=== PATIENT | female | born 1990 | race Native Hawaiian/Other Pacific Islander ===

== ENCOUNTER 2017-01-22 19:47 | Emergency (ER) | payer OTHER ==
[~2017-01-22] VITALS: Ht 170.2 cm; Wt 83.9 kg
[2017-01-22 21:02] LABS: PLATELET COUNT 238 K/uL (152-353)
[2017-01-22 21:22] LABS: POTASSIUM 3.7 mmol/L (3.6-5.2); SODIUM 135 mmol/L (136-145)
[2017-01-22 23:23] VITALS: BP 124/74; TEMP 99
== END 2017-01-22 23:45 | disposition home or self-care (01) ==
LOC: ED 19:47
DX: K52.9 Noninfective gastroenteritis and colitis, unspecified (principal); R19.7 Diarrhea, unspecified
CPT/HCPCS: 36415; 80053; 81000; 81025; 85027; 96374; 99284; J2405

== ENCOUNTER 2017-12-27 08:29 | Emergency (ER) | payer OTHER ==
[~2017-12-27] VITALS: Ht 167.6 cm; Wt 86.2 kg
[2017-12-27 08:34] VITALS: TEMP 97.2
[2017-12-27 09:36] LABS: PLATELET COUNT 214 K/uL (152-353)
[2017-12-27 10:04] LABS: POTASSIUM 4.3 mmol/L (3.6-5.2)
[2017-12-27 12:43] VITALS: BP 108/60
[2017-12-28] MEDS ORDERED: 904272561 PO (05:59)
[2017-12-28] MEDS ORDERED: KETO10TA34 PO (06:00)
== END 2017-12-27 12:51 | disposition home or self-care (01) ==
LOC: ED 08:29
PROVIDERS: Emergency Medicine
DX: N39.0 Urinary tract infection, site not specified (principal); K59.00 Constipation, unspecified; R10.11 Right upper quadrant pain
CPT/HCPCS: 36415; 80053; 81000; 81025; 82150; 83690; 85027; 87077; 87086; 87088; 87186; 96360; 96361; 96374; 96375; 99284; J1885; J2405

== ENCOUNTER 2017-12-28 05:36 | Outpatient (CLI) | payer OTHER ==
[2017-12-28] MEDS ORDERED: 904272561 PO (05:59)
[2017-12-28] MEDS ORDERED: KETO10TA34 PO (06:00)
== END 2017-12-28 05:44 | disposition short-term general hospital (02) ==
LOC: AMB 05:36
DX: R10.0 Acute abdomen (principal)
CPT/HCPCS: A0425; A0427

== ENCOUNTER 2017-12-28 05:47 | Inpatient (IN) | payer OTHER ==
[~2017-12-28] VITALS: Ht 167.6 cm; Wt 78.7 kg
[2017-12-28 05:47] VITALS: BP 122/76; TEMP 98.4
[2017-12-28] MEDS ORDERED: 904272561 PO (05:59)
[2017-12-28] MEDS ORDERED: KETO10TA34 PO (06:00)
[2017-12-28 06:28] LABS: PLATELET COUNT 219 K/uL (152-353)
[2017-12-28 06:37] LABS: POTASSIUM 4.4 mmol/L (3.6-5.2)
[2017-12-28 08:45] VITALS: BP 102/68
[2017-12-28 09:45] VITALS: BP 104/60
[2017-12-28 10:47] VITALS: BP 87/48; TEMP 98.6; Ht 167.6 cm; Wt 78.7 kg
[2017-12-28 16:00] VITALS: BP 90/53; TEMP 100
[2017-12-28 20:00] VITALS: BP 108/56; TEMP 99.2
[2017-12-29 00:22] VITALS: BP 104/55; TEMP 102.2
[2017-12-29 04:37] VITALS: BP 100/60; TEMP 98.6
[2017-12-29 10:14] LABS: PLATELET COUNT 162 K/uL (152-353)
[2017-12-29 12:00] VITALS: BP 98/58; TEMP 97.6
[2017-12-29 12:15] VITALS: BP 99/56
[2017-12-29 12:30] VITALS: BP 111/76; TEMP 97.6
[2017-12-29 12:45] VITALS: BP 109/73
== END 2017-12-29 18:30 | disposition home or self-care (01) | DRG 418 ==
LOC: ED 05:47 → MED/SURG 09:30 → ED 09:30 → MED/SURG 12-29 18:30
PROVIDERS: Emergency Medicine
PROC: 0FT44ZZ Resection of Gallbladder, Percutaneous Endoscopic Approach (ICD-10-PCS; principal; 2017-12-29)
DX: K80.00 Calculus of gallbladder with acute cholecystitis without obstruction (principal); N39.0 Urinary tract infection, site not specified; L02.511 Cutaneous abscess of right hand
CPT/HCPCS: 36415; 80053; 80307; 81000; 81025; 85027; 87070; 87205; 96372; 96374; 96375; 99284; J0132; J0295; J0330; J1100; J1170; J1650; J1885; J2001; J2175; J2250; J2405; J2704; J2710; J3010; J3411; J3490; J7120

== ENCOUNTER 2019-10-04 08:18 | Outpatient (CLI) | payer OTHER ==
[~2019-10-04 08:18] MED LIST: 904272561 PO; KETO10TA34 PO
== END 2019-10-04 19:39 | disposition home or self-care (01) ==
LOC: LAB 08:18
DX: R53.83 Other fatigue (principal); R05 Cough; R06.02 Shortness of breath; Z11.59 Encounter for screening for other viral diseases
CPT/HCPCS: 87635; G2023; U00003

== ENCOUNTER 2020-11-05 22:56 | Emergency (ER) | payer OTHER ==
[~2020-11-05] VITALS: Ht 167.6 cm; Wt 78.9 kg
[2020-11-06 00:13] VITALS: BP 125/80; TEMP 97.5
== END 2020-11-06 00:53 | disposition home or self-care (01) ==
LOC: ED 22:56
DX: Z53.21 Procedure and treatment not carried out due to patient leaving prior to being seen by health care provider (principal); S70.361A Insect bite (nonvenomous), right thigh, initial encounter; W57.XXXA Bitten or stung by nonvenomous insect and other nonvenomous arthropods, initial encounter; Y92.9 Unspecified place or not applicable
CPT/HCPCS: 99281

== ENCOUNTER 2020-12-06 22:51 | Emergency (ER) | payer OTHER ==
[~2020-12-06] VITALS: Ht 167.6 cm; Wt 78.9 kg
[2020-12-06] MEDS ORDERED: GRALISE600 MG (23:20)
[2020-12-07 00:20] VITALS: BP 132/86; TEMP 98.2
== END 2020-12-07 00:20 | disposition home or self-care (01) ==
LOC: ED 22:51
DX: T63.301D Toxic effect of unspecified spider venom, accidental (unintentional), subsequent encounter (principal); L03.115 Cellulitis of right lower limb; X58.XXXD Exposure to other specified factors, subsequent encounter; Y92.89 Other specified places as the place of occurrence of the external cause
CPT/HCPCS: 96372; 99283; J0696; J2930

== ENCOUNTER 2021-03-17 22:31 | Emergency (ER) | payer OTHER ==
[~2021-03-17] VITALS: Ht 170.2 cm; Wt 77.1 kg
[~2021-03-17 22:31] MED LIST changes: +GRALISE600 MG
[2021-03-17 23:40] VITALS: BP 117/69; TEMP 98.8
== END 2021-03-17 23:45 | disposition home or self-care (01) ==
LOC: ED 22:31
DX: J01.80 Other acute sinusitis (principal); N39.0 Urinary tract infection, site not specified; Z20.822 Contact with and (suspected) exposure to COVID-19
CPT/HCPCS: 87502; 87635; 87651; 99283; U0003

== ENCOUNTER 2021-12-10 12:40 | Emergency (ER) | payer OTHER ==
[~2021-12-10] VITALS: Ht 170.2 cm; Wt 77.1 kg
[2021-12-10 12:40] VITALS: TEMP 97.8
[2021-12-10 13:39] LABS: PLATELET COUNT 272 K/uL (152-353)
[2021-12-10 13:51] LABS: POTASSIUM 3.9 mmol/L (3.6-5.2)
[2021-12-10 18:36] VITALS: BP 106/77
== END 2021-12-10 18:56 | disposition home or self-care (01) ==
LOC: ED 12:40
PROVIDERS: Internal Medicine
DX: F15.10 Other stimulant abuse, uncomplicated (principal)
CPT/HCPCS: 80053; 80143; 80179; 80307; 80320; 81000; 81025; 85027; 93005; 96360; 96361; 99285; J2250